=== PATIENT | female | born 1965 | race Caucasian/White ===

== ENCOUNTER 2019-11-20 14:42 | Inpatient (IN) ==
[2019-11-20] MEDS ORDERED: Isovue-370 500 ML BOTTLE IVP ONE (15:06)
[2019-11-20 17:12] LABS: Basophils % 0.3 %; Eosinophils # 0.1 K/mcL (0.0-0.6); Eosinophils % 1.5 %; Hematocrit 33.2 % (35.3-44.9); Hemoglobin 10.5 g/dL (11.5-15.4); Immature Granulocytes % 6.1 % (0-4); Lymphocytes # 0.4 K/mcL (0.6-4.6); Lymphocytes % 4.5 %; Mean Corpuscular HGB Conc 31.6 g/dL (31.6-35.5); Mean Corpuscular Hemoglobin 30.3 pg (28.0-33.3); Mean Corpuscular Volume 95.7 fL (83.0-100.0); Mean Platelet Volume 8.8 fL (9.4-12.4); Monocytes # 0.4 K/mcL (0.0-1.3); Monocytes % 4.7 %; Nucleated Red Blood Cells 1.4 /100 WBC (0); Platelet Count 248 K/mcL (140-400); Red Blood Count 3.47 M/mcL (3.82-4.97); Red Cell Distribution Width 16.9 % (11.5-14.5); Segmented Neutrophils % 82.9 %; White Blood Count 9.1 K/mcL (4.3-11.1)
[2019-11-20 17:13] LABS: INR 1.1; Prothrombin Time 12.7 Seconds (9.4-12.1)
[2019-11-20 17:15] LABS: Activated Partial Thrombo Time 31.7 Seconds (26.0-36.0)
[2019-11-20 17:26] LABS: Neutrophils # 7.5 K/mcL (1.6-8.9)
[2019-11-20 17:30] LABS: BUN/Creatinine Ratio 38 (6-26); Blood Urea Nitrogen 16 mg/dL (6-20); Calcium 7.9 mg/dL (8.6-10.3); Carbon Dioxide 29 mEq/L (23-29); Chloride 102 mEq/L (98-107); Glucose 129 mg/dL (70-105); Osmolality,Calculated 289 (280-300); Potassium 3.8 mEq/L (3.5-5.1); Sodium 138 mEq/L (136-145); eGFR For African Americans > 60 (> 60); eGFR For Non-African Americans > 60 (> 60)
[2019-11-20 17:31] LABS: Troponin I < 0.03 ng/mL (< 0.04)
[2019-11-20] MEDS ORDERED: *HR* HYDROcodone/Acet 5/325 mg TABLET PO PRN (18:45)
[2019-11-20] MEDS ORDERED: Ondansetron 4 MG/2 ML VIAL IVP PRN (18:45)
[2019-11-20] MEDS ORDERED: Naloxone 0.4 MG/ML INJ IVP PRN (18:45)
[2019-11-20] MEDS ORDERED: methylPREDNISolone 125 MG/2 ML VIAL IVP SCH (18:59)
[2019-11-20] MEDS ORDERED: Morphine Sulfate 2 MG/ML SYRINGE IVP PRN ×2 (19:00→20:17)
[2019-11-20] MEDS ORDERED: Heparin 25,000UNIT/250ML 1/2NS 25,000 UNIT/250 ML IV.SOLN IVC SCH (19:30)
[2019-11-20] MEDS ORDERED: *HR* Heparin 5,000 UNIT/ML VIAL IVP ONE (19:30)
[2019-11-20] MEDS ORDERED: *HR* Heparin 5,000 UNIT/ML VIAL IVP PRN ×2 (19:30)
[2019-11-20] MEDS: Ipratropium/Albuterol Neb 3 ML IH SCH ×2 (19:32→23:23)
[2019-11-20] MEDS ORDERED: Ipratropium/Albuterol Neb 3 ML IH PRN (19:32)
[2019-11-20] MEDS ORDERED: Furosemide 20 MG/2 ML VIAL IVP ONE (19:45)
[2019-11-20] MEDS: *HR* OxyCODONE Immed Rel 5 MG TABLET PO PRN (20:41)
[2019-11-20] MEDS ORDERED: Morphine Sulfate ER (12 HR) 15 MG TABLET.ER PO SCH (21:00)
[2019-11-20] MEDS ORDERED: Furosemide 40 MG/4 ML VIAL IVP SCH (21:00)
[2019-11-20 21:15] LABS: Adenovirus Not Detected (Not Detect); Bordetella Pertussis Not Detected (Not Detect); Chlamydophila pneumoniae Not Detected (Not Detect); Coronavirus 229E Not Detected (Not Detect); Coronavirus HKU1 Not Detected (Not Detect); Coronavirus NL63 Not Detected (Not Detect); Coronavirus OC43 Not Detected (Not Detect); Human Metapneumovirus Not Detected (Not Detect); Human Rhinovirus/Enterovirus Not Detected (Not Detect); Influenza A Subtype 2009 H1 Not Detected (Not Detect); Influenza B Not Detected (Not Detect); Mycoplasma pneumoniae Not Detected (Not Detect); Parainfluenza Virus 1 Not Detected (Not Detect); Parainfluenza Virus 2 Not Detected (Not Detect); Parainfluenza Virus 3 Not Detected (Not Detect); Parainfluenza Virus 4 Not Detected (Not Detect); Respiratory Syncytial Virus Not Detected (Not Detect); SARS-CoV-2 Not Detected (Not Detect)
[2019-11-20 23:08] LABS: Heparin anti-factor XA UFH 0.06 IU/mL (0.30-0.70); INR 1.1; Prothrombin Time 12.5 Seconds (9.4-12.1)
[2019-11-20] MEDS: *HR* Enoxaparin 80 MG/0.8 ML SYRINGE SQ SCH (23:51)
[2019-11-20] MEDS: OLANZapine 5 MG TAB.RAPDIS PO SCH (23:53)
[2019-11-21 00:12] LABS: ABG Base Excess 9 mEq/L (-2 to 3); ABG HCO3 34 mEq/L (21-27); ABG Oxygen Saturation 96 % (95-98); ABG PCO2 46 mmHg (35-45); ABG PH 7.48 pH Units (7.32-7.45); ABG PO2 79 mmHg (85-104); ABG TCO2 35 mEq/L (20-26)
[2019-11-21] MEDS: Morphine Sulfate ER (12 HR) 15 MG TABLET.ER PO SCH ×3 (00:34→23:01)
[2019-11-21] MEDS: Ipratropium/Albuterol Neb 3 ML IH SCH ×6 (04:02→23:20)
[2019-11-21] MEDS: Piperacillin/Tazobactam 3.375 GM in 0.9 % Sodium Chloride Mini Bag 100 ML IVPB SCH ×3 (05:30→23:00)
[2019-11-21] MEDS: *HR* Enoxaparin 80 MG/0.8 ML SYRINGE SQ SCH (05:31)
[2019-11-21 05:58] LABS: Basophils % 0.5 %; Eosinophils % 0.1 %; Hemoglobin 11.2 g/dL (11.5-15.4); Immature Granulocytes % 5.4 % (0-4); Lymphocytes # 0.7 K/mcL (0.6-4.6); Lymphocytes % 9.3 %; Mean Corpuscular Hemoglobin 30.9 pg (28.0-33.3); Mean Corpuscular Volume 96.7 fL (83.0-100.0); Monocytes # 0.6 K/mcL (0.0-1.3); Monocytes % 7.2 %; Nucleated Red Blood Cells 1.6 /100 WBC (0); Platelet Count 245 K/mcL (140-400); Red Blood Count 3.62 M/mcL (3.82-4.97); Red Cell Distribution Width 17.1 % (11.5-14.5); Segmented Neutrophils % 77.5 %; White Blood Count 7.7 K/mcL (4.3-11.1)
[2019-11-21 06:20] LABS: Alanine Aminotransferase 29 Units/L (7-52); Albumin 2.6 g/dL (3.5-5.7); Alkaline Phosphatase 168 Units/L (34-104); Aspartate Amino Transferase 36 Units/L (13-39); BUN/Creatinine Ratio 24 (6-26); Bilirubin,Total 0.3 mg/dL (0.3-1.0); Blood Urea Nitrogen 12 mg/dL (6-20); Calcium 7.6 mg/dL (8.6-10.3); Carbon Dioxide 32 mEq/L (23-29); Chloride 100 mEq/L (98-107); Globulin 2.7 g/dL (2.4-3.5); Glucose 70 mg/dL (70-105); Magnesium 1.8 mg/dL (1.6-2.6); Osmolality,Calculated 288 (280-300); Phosphorous 2.9 mg/dL (2.7-4.5); Potassium 3.2 mEq/L (3.5-5.1); Sodium 140 mEq/L (136-145); Total Protein 5.3 g/dL (6.4-8.9); eGFR For African Americans > 60 (> 60); eGFR For Non-African Americans > 60 (> 60)
[2019-11-21 06:21] LABS: % Iron Saturation 25 % (15-50); Iron 71 mcg/dL (50-170); Transferrin 204 mg/dL (203-362)
[2019-11-21 06:34] LABS: Polychromasia 1+ (Not Present)
[2019-11-21 06:36] LABS: Basophilic Stippling 1+ (Not Present); Platelet Estimate Normal (Normal)
[2019-11-21 07:12] LABS: Folate 18.4 ng/mL (3.0-16.0)
[2019-11-21] MEDS: BuPROPion XL (24 HR) 150 MG TABLET PO SCH (08:00)
[2019-11-21] MEDS ORDERED: *HR* LORazepam Oral Conc 2 MG/ML SL PRN (10:12)
[2019-11-21] MEDS ORDERED: Morphine Sulfate 2 MG/ML SYRINGE IVP PRN (10:12)
[2019-11-21] MEDS: Morphine Sulfate Oral CONC 10 MG/0.5 ML ORAL.SYG SL PRN (15:32)
[2019-11-21] MEDS ORDERED: *HR* LORazepam 0.5 MG TABLET PO PRN (19:17)
[2019-11-21] MEDS ORDERED: Acetaminophen 650 MG RECTAL SUPP RC PRN (19:17)
[2019-11-21] MEDS ORDERED: Bisacodyl 10 MG RECTAL SUPPOSITORY RC PRN (19:17)
[2019-11-21] MEDS ORDERED: Sennosides 8.6 MG TABLET PO PRN (19:17)
[2019-11-21] MEDS: OLANZapine 5 MG TAB.RAPDIS PO SCH (20:22)
[2019-11-22 01:34] LABS: Hematocrit 33.7 % (35.3-44.9); Hemoglobin 10.5 g/dL (11.5-15.4); Mean Corpuscular HGB Conc 31.2 g/dL (31.6-35.5); Mean Corpuscular Hemoglobin 30.9 pg (28.0-33.3); Mean Corpuscular Volume 99.1 fL (83.0-100.0); Mean Platelet Volume 9.3 fL (9.4-12.4); Platelet Count 232 K/mcL (140-400); Red Cell Distribution Width 17.2 % (11.5-14.5); White Blood Count 6.5 K/mcL (4.3-11.1)
[2019-11-22 01:47] LABS: BUN/Creatinine Ratio 23 (6-26); Blood Urea Nitrogen 12 mg/dL (6-20); Calcium 7.6 mg/dL (8.6-10.3); Carbon Dioxide 30 mEq/L (23-29); Chloride 102 mEq/L (98-107); Glucose 75 mg/dL (70-105); Magnesium 1.9 mg/dL (1.6-2.6); Osmolality,Calculated 288 (280-300); Phosphorous 2.9 mg/dL (2.7-4.5); Potassium 3.5 mEq/L (3.5-5.1); Sodium 140 mEq/L (136-145); eGFR For African Americans > 60 (> 60); eGFR For Non-African Americans > 60 (> 60)
[2019-11-22] MEDS: Ipratropium/Albuterol Neb 3 ML IH SCH ×6 (04:25→23:13)
[2019-11-22] MEDS: Methylphenidate HCl 10 MG TABLET PO SCH (08:43)
[2019-11-22] MEDS: dexAMETHasone 4 MG TABLET PO SCH (08:43)
[2019-11-22] MEDS: BuPROPion XL (24 HR) 150 MG TABLET PO SCH (08:43)
[2019-11-22] MEDS: Piperacillin/Tazobactam 3.375 GM in 0.9 % Sodium Chloride Mini Bag 100 ML IVPB SCH ×2 (08:43→15:41)
[2019-11-22] MEDS ORDERED: Cholecalciferol (D-3) 1,000 UNIT (25MCG) TABLET PO SCH (09:00)
[2019-11-22] MEDS: Morphine Sulfate Oral CONC 10 MG/0.5 ML ORAL.SYG SL PRN ×2 (09:37→21:28)
[2019-11-22] MEDS: Morphine Sulfate ER (12 HR) 15 MG TABLET.ER PO SCH (11:18)
[2019-11-22] MEDS: *HR* Heparin 5,000 UNIT/ML VIAL SQ SCH ×2 (15:40→21:27)
[2019-11-22] MEDS: OLANZapine 5 MG TAB.RAPDIS PO SCH (21:27)
[2019-11-23] MEDS: Morphine Sulfate ER (12 HR) 15 MG TABLET.ER PO SCH ×2 (00:45→10:51)
[2019-11-23] MEDS: Piperacillin/Tazobactam 3.375 GM in 0.9 % Sodium Chloride Mini Bag 100 ML IVPB SCH ×2 (00:45→10:49)
[2019-11-23] MEDS: Ipratropium/Albuterol Neb 3 ML IH SCH ×3 (04:06→11:17)
[2019-11-23 04:50] LABS: Basophils # 0.1 K/mcL (0.0-0.2); Basophils % 0.6 %; Eosinophils % 0.1 %; Hematocrit 34.7 % (35.3-44.9); Hemoglobin 10.9 g/dL (11.5-15.4); Immature Granulocytes % 5.7 % (0-4); Lymphocytes # 0.6 K/mcL (0.6-4.6); Mean Corpuscular HGB Conc 31.4 g/dL (31.6-35.5); Mean Corpuscular Hemoglobin 31.1 pg (28.0-33.3); Mean Corpuscular Volume 98.9 fL (83.0-100.0); Monocytes # 0.6 K/mcL (0.0-1.3); Monocytes % 7.8 %; Neutrophils # 6.2 K/mcL (1.6-8.9); Nucleated Red Blood Cells 0.4 /100 WBC (0); Platelet Count 246 K/mcL (140-400); Red Blood Count 3.51 M/mcL (3.82-4.97); Red Cell Distribution Width 16.9 % (11.5-14.5); Segmented Neutrophils % 77.8 %; White Blood Count 7.9 K/mcL (4.3-11.1)
[2019-11-23 05:10] LABS: BUN/Creatinine Ratio 25 (6-26); Blood Urea Nitrogen 13 mg/dL (6-20); Calcium 7.8 mg/dL (8.6-10.3); Carbon Dioxide 30 mEq/L (23-29); Chloride 103 mEq/L (98-107); Glucose 139 mg/dL (70-105); Osmolality,Calculated 294 (280-300); Potassium 3.3 mEq/L (3.5-5.1); Sodium 141 mEq/L (136-145); eGFR For African Americans > 60 (> 60); eGFR For Non-African Americans > 60 (> 60)
[2019-11-23] MEDS: *HR* OxyCODONE Immed Rel 5 MG TABLET PO PRN (05:48)
[2019-11-23] MEDS: *HR* Heparin 5,000 UNIT/ML VIAL SQ SCH (05:48)
[2019-11-23 05:55] LABS: Platelet Estimate Normal (Normal)
[2019-11-23 07:31] VITALS: BP 144/85
[2019-11-23] MEDS: dexAMETHasone 4 MG TABLET PO SCH (10:50)
[2019-11-23] MEDS: Methylphenidate HCl 10 MG TABLET PO SCH (10:50)
[2019-11-23] MEDS: BuPROPion XL (24 HR) 150 MG TABLET PO SCH (10:50)
[2019-11-23] MEDS ORDERED: Morphine Sulfate Oral CONC 10 MG/0.5 ML ORAL.SYG SL PRN (11:01)
== END 2019-11-23 14:25 | disposition hospice, home (50) | DRG 919 ==
LOC: SUATTDRO → EMEROOARM 14:42 → 3BNU 14:42 → SUATTDRO 19:21 → 2NNU 19:38 → 2ANU 11-21 09:35
PROVIDERS: ADMIT Internal Medicine; ATTEND Pharmacist
PROC: IRDRAIN (2019-11-22 11:00)